=== PATIENT | male | born 1970 | race Caucasian/White ===

== ENCOUNTER 2017-02-22 11:00 | Day surgery (SDC) | payer OTHER ==
[~2017-02-22] VITALS: Ht 180.3 cm; Wt 88.0 kg
[~2017-02-22 11:00] MED LIST: COLC0.6T52 PO; HYDR-4003 PO; LEVO750T39 PO; METR500T19 PO; Sodium Chloride LOK Flush 10 mL Syringe IV PRN; fentaNYL-PF 50 mCg/mL 2 mL Inj IVPUSH PRN
[2017-02-22 11:39] VITALS: BP 115/71; PULSE 62; RESP 14; O2SAT 98
[2017-02-22] MEDS: 0.9% Sodium Chloride 1,000 ML IV SCH ×2 (13:07→13:15)
[2017-02-22 13:28] VITALS: BP 114/72; PULSE 80; RESP 14; O2SAT 97
[2017-02-22 13:40] VITALS: BP 112/80; PULSE 75; RESP 14; O2SAT 97
--- NOTE | 2017-02-22 14:01 | ENDO ---
[address] [address] ENDOSCOPY PROCEDURE PATIENT: ANITRA OLIVER : 1970 MR#: [id number] ADMIT: 02/22/2017 JOB ID: [id number] DATE OF SERVICE: 02/22/2017 PROCEDURE: Colonoscopy. INDICATION: Diverticulitis. The patient's ASA classification is 1. Mallampati score is 2. MEDICATIONS: Versed 5 mg, Fentanyl 100 mcg. INSTRUMENT USED: PCFH-180AL PREPARATION QUALITY: Fair. PROCEDURE DETAILS: After informed consent was obtained, the patient was brought to the GI suite, where he was placed on oxygen via nasal cannula and monitored with continuous pulse oximeter, telemetry, and blood pressure monitoring. A time-out was performed. Then, he was placed in a left lateral decubitus position and medications were administered for sedation. A digital rectal exam was performed which was unremarkable. The colonoscope was then inserted into the rectum and advanced under direct visualization to the cecum, which was identified by the presence of the ileocecal valve and appendiceal orifice. Once the cecum was reached, the colonoscope was withdrawn back into the rectum mucosa and examined. In the rectum, retroflexion was performed. Following retroflexion, remaining air in the rectum was suctioned, and procedure was completed. FINDINGS: 1. In the transverse colon, there was an approximately 4 mm sessile polyp which was removed with a cold snare. 2. In the descending colon, there was a diminutive polyp that was removed with cold biopsy forceps. 3. In the rectum, there was a diminutive polyp that was removed with cold biopsy forceps. 4. Scattered diverticula were seen in the ascending colon, as well as in the descending colon. IMPRESSION: 1. Transverse colon polyp. 2. Descending colon polyp. 3. Rectal polyp. 4. Diverticulosis. RECOMMENDATIONS: 1. Fiber rich diet. 2. Follow up in GI clinic in 2-4 weeks. COMPLICATIONS: None. ESTIMATED BLOOD LOSS: Less than 5 mL
--- NOTE | 2017-02-25 12:06 | PATH ---
SURGICAL PATHOLOGY Attending Physician:Edwin Murry CASE STATUS: Signed Out PATIENT NAME: ANITRA OLIVER PID: [id number] : 1970 DATE COLLECTED:02/22/2017 00:00 SPECIMEN: 1: Colon, Polyp 2: Colon, Polyp 3: Rectum, Biopsy CLINICAL HISTORY: 1). TRANSVERSE COLON POLYP 2). DESCENDING COLON POLYP 3). RECTAL POLYP FINAL DIAGNOSIS: 1.TRANSVERSE COLON POLYP: SESSILE SERRATED ADENOMA. 2.DESCENDING COLON POLYP: POLYPOID-SHAPED FRAGMENT OF COLON MUCOSA CONSISTENT WITH MUCOSAL POLYPOID REDUNDANCY. NEGATIVE FOR DYSPLASIA AND MALIGNANCY. 3.RECTAL POLYP: CHANGES CONSISTENT WITH HYPERPLASTIC POLYP. ICD10 D12.3 GROSS DESCRIPTION: Received are three formalin-filled containers, each labeled with the patient' s name. 1. Received in formalin, labeled with the patient' s name and "transverse colon polyp", is one fragment of rachel, soft tissue measuring 0.4 x 0.2 x 0.2 cm. The fragment is totally submitted in cassette 1A. 2. Received in formalin, labeled with the patient' s name and "descending colon polyp", is one fragment of rachel, soft tissue measuring 0.1 x 0.1 x 0.1 cm. The fragment is totally submitted in cassette 2A. 3. Received in formalin, labeled with the patient' s name and "rectal polyp", is one fragment of rachel, soft tissue measuring 0.2 x 0.2 x 0.1 cm. The fragment is totally submitted in cassette 3A. ([id number]) MICRO DESCRIPTION: See diagnosis. ICD-9 CODES: CPT CODES: 1: 16671 2: 25075 3: 41629 Electronically Signed Out Agustin Graham MD [facility] Pathology [facility] [address], [place] [address] Technical component performed at [facility], [facility] [address], [address]
== END 2017-02-22 23:59 | disposition home or self-care (01) ==
LOC: END 11:00
PROVIDERS: ATTEND Internal Medicine Gastroenterology
DX: D12.3 Benign neoplasm of transverse colon (principal); K63.5 Polyp of colon; K62.1 Rectal polyp; K57.30 Diverticulosis of large intestine without perforation or abscess without bleeding
CPT/HCPCS: 45380; 45385; 99153; G0500; J2250; J3010; J7030